=== PATIENT | female | born 1990 | race Caucasian/White ===

== ENCOUNTER 2019-11-25 03:59 | Emergency (ER) | payer MEDICAID, OTHER ==
[~2019-11-25] VITALS: Ht 165.1 cm; Wt 52.2 kg
--- NOTE | 2019-11-25 04:10 | NUR ---
PT CHRISTEL FROM HOME. PT STATES "I FEEL LIKE MY JAW IS DISLOCATED AND WHEN I'M SLEEPING, I DON'T THINK I'M GETTING ENOUGH OXYGEN." DENIES TRAUMA. PT AAOX4. RESPIRATIONS EVEN AND UNLABORED. O2 SAT 100% ROOM AIR. NO ACUTE DISTRESS NOTED AT THIS TIME. WILL CONTINUE TO MONITOR
--- NOTE | 2019-11-25 04:15 | NUR ---
MD AT BEDSIDE FOR EVALUATION
--- NOTE | 2019-11-25 04:18 | NUR ---
PT NOW C/O CHEST PAIN, MD AWARE
[2019-11-25] MEDS ORDERED: ALPRAZOLAM 0.5 MG TABLET ONE (04:20)
[2019-11-25] MEDS ORDERED: ALPRAZOLAM 0.5 MG TABLET PO ONE (04:30)
--- NOTE | 2019-11-25 04:36 | NUR ---
RADIOLOGY AT BEDSIDE FOR XRAY
[2019-11-25 05:08] LABS: BASOPHILS % (AUTO) 0.2 % (0.0-2.0); EOSINOPHILS % (AUTO) 0.4 % (0.0-6.0); HEMATOCRIT 42 % (33-45); HEMOGLOBIN 14.1 g/dL (11.5-14.8); LYMPHOCYTES # (AUTO) 1.1 /CMM (0.8-4.8); LYMPHOCYTES % (AUTO) 11.1 % (20.0-44.0); MEAN CORPUSCULAR HGB CONC 33 g/dl (31.0-36.0); MEAN CORPUSCULAR VOLUME 94 fL (82-100); MONOCYTES # (AUTO) 0.8 /CMM (0.1-1.30); MONOCYTES % (AUTO) 8.1 % (2.0-12.0); NEUTROPHILS # (AUTO) 7.8 /CMM (1.8-8.9); NEUTROPHILS % (AUTO) 80.2 % (43.0-81.0); PLATELET COUNT (AUTO) 224 /CMM (150-450); RED BLOOD CELL COUNT(AUTO) 4.52 MIL/uL (4.0-5.2); WHITE BLOOD COUNT (AUTO) 9.8 K/uL (4.3-11.0)
[2019-11-25 05:26] LABS: CALCIUM, SERUM 9.3 mg/dL (8.5-10.1); CARBON DIOXIDE 24 mmol/L (21-32); CHLORIDE 103 mmol/L (98-107); CREATININE 0.7 mg/dL (0.6-1.3); GLUCOSE 94 mg/dL (74-106); POTASSIUM 3.1 mmol/L (3.5-5.1); SODIUM SERUM 141 mmol/L (136-145); UREA NITROGEN, BLOOD 7 mg/dL (7-18)
[2019-11-25 05:34] LABS: ALANINE AMINOTRANSFERASE 24 U/L (12-78); ALBUMIN 4.5 g/dL (3.4-5.0); ALKALINE PHOSPHATASE 61 U/L (46-116); ASPARTATE AMINOTRANSFERASE 21 U/L (15-37); B-TYPE NATRIURETIC PEPTIDE 33 PG/ML (0-125); BILIRUBIN,DIRECT 0.2 mg/dL (0.0-0.2); BILIRUBIN,TOTAL 0.6 mg/dL (0.2-1.0)
--- NOTE | 2019-11-25 08:58 | NUR ---
CALLED LAB TO FOLLOW UP TROPONIN RESULT.
--- NOTE | 2019-11-25 09:12 | NUR ---
CALLED [facility] REGARDING TROPONIN RESULT DELAY.
[2019-11-25 09:22] VITALS: BP 113/72
--- NOTE | 2019-11-25 09:22 | NUR ---
IV removed. Catheter intact and site benign. Pressure and 4x4 applied to site. No bleeding noted. Patient discharged to home in stable condition. Written and verbal after care instructions given. Patient verbalizes understanding of instruction.
== END 2019-11-25 09:24 | disposition home or self-care (01) ==
LOC: ER 04:03
DX: R07.89 Other chest pain (principal); R06.00 Dyspnea, unspecified; Q79.60 Ehlers-Danlos syndrome, unspecified; M25.28 Flail joint, other site
CPT/HCPCS: 36415; 70110-TC; 70360-TC; 71045-TC; 80048-TC; 80076-TC; 83880; 84484-TC; 85025-TC; 85730-TC

== ENCOUNTER 2020-08-14 18:34 | Emergency (ER) | payer OTHER ==
[~2020-08-14] VITALS: Ht 152.4 cm; Wt 56.7 kg
[2020-08-14 18:41] VITALS: BP 119/72
[2020-08-14] MEDS ORDERED: TRAM50TA2 PO (19:37)
[2020-08-14] MEDS ORDERED: IBUP-1955 PO (19:37)
== END 2020-08-14 19:45 | disposition home or self-care (01) ==
LOC: ER 18:48
DX: S86.811A Strain of other muscle(s) and tendon(s) at lower leg level, right leg, initial encounter (principal); S09.8XXA Other specified injuries of head, initial encounter; Z79.899 Other long term (current) drug therapy; V49.49XA Driver injured in collision with other motor vehicles in traffic accident, initial encounter; Y93.89 Activity, other specified; Y92.488 Other paved roadways as the place of occurrence of the external cause; Y99.8 Other external cause status

== ENCOUNTER 2020-08-27 04:49 | Emergency (ER) | payer OTHER ==
[~2020-08-27] VITALS: Ht 165.1 cm; Wt 56.7 kg
[~2020-08-27 04:49] MED LIST: IBUP-1955 PO; TRAM50TA2 PO
[2020-08-27] MEDS ORDERED: LORAZEPAM INJ 2 MG/ML VIAL ONE (05:20)
[2020-08-27] MEDS ORDERED: ONDANSETRON HCL/PF 4 MG/2 ML VIAL ONE (05:20)
[2020-08-27] MEDS ORDERED: IV NS 0.9% 1,000 ML IV ONE (05:30)
[2020-08-27] MEDS ORDERED: LORAZEPAM INJ 2 MG/ML VIAL IV ONE (05:30)
[2020-08-27] MEDS ORDERED: ONDANSETRON HCL/PF 4 MG/2 ML VIAL IV ONE (05:30)
--- NOTE | 2020-08-27 05:30 | NUR ---
BIBS FOR C/O H/A,. NECK PAIN , "SUBLUXATION" AND ANXIETY ATTACK, RECEIVED FIRST DOSE OF COVID VACCINE YESTERDAY, PT STATES SHE HAS A COLLAGEN CONDITION AND NEEDS BRACES TO HOLD HER BONES UP, C/O JAW PAIN
[2020-08-27] MEDS ORDERED: HYDROCODONE/APAP 10/325MG TABLET ONE (05:55)
[2020-08-27] MEDS ORDERED: HYDROCODONE/APAP 10/325MG TABLET PO ONE (06:00)
[2020-08-27] MEDS ORDERED: HALOPERIDOL LACTATE INJ 5 MG/ML VIAL ONE (06:29)
[2020-08-27] MEDS ORDERED: HALOPERIDOL LACTATE INJ 5 MG/ML VIAL IV ONE (06:30)
--- NOTE | 2020-08-27 06:53 | NUR ---
PHLEB AT BEDSIDE TO DRAW BLOOD
[2020-08-27 07:04] LABS: BASOPHILS # (AUTO) 0.1 /CMM (0.0-0.2); BASOPHILS % (AUTO) 0.5 % (0.0-2.0); EOSINOPHILS % (AUTO) 0.8 % (0.0-6.0); HEMATOCRIT 40 % (33-45); HEMOGLOBIN 13.4 g/dL (11.5-14.8); LYMPHOCYTES # (AUTO) 1.2 /CMM (0.8-4.8); LYMPHOCYTES % (AUTO) 12.8 % (20.0-44.0); MEAN CORPUSCULAR HGB CONC 34 g/dl (31.0-36.0); MEAN CORPUSCULAR VOLUME 92 fL (82-100); MONOCYTES # (AUTO) 0.9 /CMM (0.1-1.30); MONOCYTES % (AUTO) 9.8 % (2.0-12.0); NEUTROPHILS # (AUTO) 7.3 /CMM (1.8-8.9); NEUTROPHILS % (AUTO) 76.1 % (43.0-81.0); PLATELET COUNT (AUTO) 217 /CMM (150-450); RED BLOOD CELL COUNT(AUTO) 4.32 MIL/uL (4.0-5.2); WHITE BLOOD COUNT (AUTO) 9.5 K/uL (4.3-11.0)
[2020-08-27 07:10] LABS: CALCIUM, SERUM 8.4 mg/dL (8.5-10.1); CREATININE 0.6 mg/dL (0.6-1.3); POTASSIUM 3.1 mmol/L (3.5-5.1)
[2020-08-27 07:16] LABS: ALBUMIN 3.8 g/dL (3.4-5.0); BILIRUBIN,DIRECT 0.2 mg/dL (0.0-0.2); BILIRUBIN,TOTAL 0.8 mg/dL (0.2-1.0)
[2020-08-27 07:51] LABS: THYROID STIMULATING HORMONE 4.812 uIU/mL (0.358-3.74)
[2020-08-27] MEDS ORDERED: ONDA4TAB11 PO (08:30)
[2020-08-27] MEDS ORDERED: POTASSIUM CHLORIDE 20 MEQ TAB.PRT.SR PO ONE ×2 (08:58→09:00)
[2020-08-27 09:18] VITALS: BP 118/71
--- NOTE | 2020-08-27 09:19 | NUR ---
Patient discharged to home in stable condition. Written and verbal after care instructions given. Patient verbalizes understanding of instruction.IV removed. Catheter intact and site benign. Pressure and 4x4 applied to site. No bleeding noted.
== END 2020-08-27 09:18 | disposition home or self-care (01) ==
LOC: ER 04:52 → EDBD 04:52 → ER 09:18
DX: R11.0 Nausea (principal); E03.9 Hypothyroidism, unspecified; E87.6 Hypokalemia; F41.9 Anxiety disorder, unspecified; Z98.890 Other specified postprocedural states; Z79.899 Other long term (current) drug therapy
CPT/HCPCS: 36415; 80048; 80076; 83690; 83735; 84439; 84443; 85025; 96361; 96374; 96375; 99284; J1630; J2060; J2405; J7030 ×2